=== PATIENT | male | born 1980 | race Caucasian/White ===

== ENCOUNTER 2016-06-27 13:48 | Emergency (ER) | payer BC | END 2016-06-27 14:55 | disposition home or self-care (01) | LOC: ER1 13:48 | DX: S51.811A Laceration without foreign body of right forearm, initial encounter (principal); F17.210 Nicotine dependence, cigarettes, uncomplicated; Z90.49 Acquired absence of other specified parts of digestive tract; W17.89XA Other fall from one level to another, initial encounter | CPT/HCPCS: 12001; 29125; 90471; 90715; 99283 ==